=== PATIENT | female | born 1945 | race Hispanic/Latino ===

== ENCOUNTER → 2024-06-15 | Outpatient (CLI) | payer MEDICARE ==
[~2024-06-15] MED LIST: IOHEXOL 350 MG/ML 100ML INFUS..BTL IV ONE
--- NOTE | 2024-06-15 11:47 | HMCIMG ---
CT OF THE CHEST WITH CONTRAST- CT Cardiac Angio co-interpretation This is done as part of the CT cardiac angiogram study. The interpretation of the coronary arteries will be done by textile machinery instructor in a separate report. History: over-read Comparison: none CT Dose Index (CTDI): 77.90 mGy Dose Length Product (DLP): 493.40 total mGy PROTOCOL: Examination is done at 2.5 millimeter volumetric acquisition after contrast administration with Isovue 370, 100 cc IV, without complications. Photography is done at 5 millimeter thick intervals for the thorax. The examination begins above the heart and therefore the lung apices are incompletely included. The rest of the left lung is included but the right lung is only included up to its middle third. The periphery of the right lung is not included in the study. FINDINGS: The visualized part of the airway is preserved. The bony and soft tissue structures of the chest wall are unremarkable. The aorta is unremarkable. No mediastinal lymphadenopathy is seen. The lung windows demonstrate no worrisome pulmonary nodules, masses or infiltrates. There is no evidence of pulmonary embolism in the visualized lung segments. The upper abdominal views are unremarkable. Impression: No significant abnormalities identified.
--- NOTE | 2024-06-24 16:13 | CARDIOLOGY ---
RAD REPORT: CORNARY CT ANGIO RADIOLOGY REPORT: CORONARY CT ANGIOGRAPHY DATE: Jun 24, 2024 QUALITY: Excellent CLINICAL HISTORY AND INDICATION: [chest pain ] TECHNIQUE: After obtaining a preliminary wine bottle inspector image, contrast imaging performed on an [employer]illon [id number] scanner. A dedicated, limited window, coronary imaging protocol was used, with single breath-hold, retrospective ECG gating, and automated arrhythmia rejection. 100 cc of low osmolar contrast agent: Omnipaque 350 was delivered via a 18-gauge IV catheter in the right antecubital fossa, using a power injector and followed by 60 cc of normal saline bolus as a chaser. Collimated images were reformatted at 0.5 mm intervals, and sent to an offline independent workstation for interpretation, using 3D anatomic reconstructions: Curved multiplanar reconstructions, maximum intensity projections, and multiplanar imaging. No metoprolol was administered prior to scanning due to low baseline heart rate. 0.8 mg SL nitroglycerin was given. CORONARY ARTERY DESCRIPTIONS: The coronary arteries arise in normal position. Left main coronary artery: Normal caliber vessel that bifurcates into the LAD and LCx. No stenosis. Left anterior descending coronary artery: Normal caliber vessel and gives rise to diagonal and septal branches. There is calcified plaque in the proximal LAD with 20-30% stenosis. Left circumflex coronary artery: Normal caliber, nondominant and gives rise to a large OM branch. There is calcified plaque in the proximal LCx with 20-30% stenosis. Right coronary artery: Large, dominant vessel giving rise to the PL and PDA branches. No stenosis. CAD-RADs: 2, mild non-obstructive CAD. Thoracic Aorta: Proximal ascending aortic aneurysm of 4.0 cm. Yamilka Thomas MD Cardiovascular Disease [facility] YAMILKA THOMAS MD Jun 24, 2024 16:13
== END | disposition home or self-care (01) ==
LOC: RAH 09:42
PROVIDERS: ATTEND Internal Medicine Cardiovascular Disease
DX: I25.10 Atherosclerotic heart disease of native coronary artery without angina pectoris (principal); R07.89 Other chest pain; R06.00 Dyspnea, unspecified
CPT/HCPCS: 75574; Q9967

== ENCOUNTER 2024-08-10 09:29 | Day surgery (SDC) | payer MEDICARE ==
[2024-08-08 11:35] VITALS: BP 154/71; PULSE 54; RESP 18; TEMP 97.6
[2024-08-08 11:35] LABS: EOSINOPHILS # (AUTO) 0.19 K/uL (0.00-0.70); EOSINOPHILS % (AUTO) 2.5 % (0.0-8.0); HEMATOCRIT 34.8 % (36-48); IMMATURE GRANULOCYTE ABSOLUTE 0.02 K/uL (0-1); LYMPHOCYTES # (AUTO) 1.7 K/uL (1.0-4.8); LYMPHOCYTES % (AUTO) 21.9 % (21.0-51.0); MEAN CORPUSCULAR HEMOGLOBIN 31.3 pg (27.0-33.0); MEAN CORPUSCULAR HGB CONC 33.3 g/dL (32.0-36.0); MEAN CORPUSCULAR VOLUME 93.8 fL (79-99); MONOCYTES # (AUTO) 0.7 K/uL (0.1-1.0); MONOCYTES % (AUTO) 8.9 % (3.0-13.0); NEUTROPHILS % (AUTO) 66.4 % (40.0-77.0); PLATELET COUNT (AUTO) 216 K/uL (130-400); RED BLOOD CELL COUNT(AUTO) 3.71 MIL/uL (4.00-5.50); RED CELL DISTRIBUTION WIDTH 13.1 % (11.0-15.5); WHITE BLOOD COUNT (AUTO) 7.5 K/uL (4.8-10.8)
[2024-08-08 11:45] LABS: CREATININE 0.8 mg/dL (0.5-1.0); POTASSIUM 4.1 mmol/L (3.5-5.1)
[2024-08-08 11:48] LABS: INR 1.02 (0.85-1.15); PROTHROMBIN TIME 10.8 SEC (9.6-11.6)
[2024-08-08 11:49] LABS: PARTIAL THROMBOPLASTIN TIME 29.4 SEC (26.3-35.5)
[2024-08-08 11:59] LABS: B-TYPE NATRIURETIC PEPTIDE 85 pg/mL (0-100)
--- NOTE | 2024-08-08 12:03 | EKG ---
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
[2024-08-08 13:43] LABS: APPEARANCE,URINE CLEAR (CLEAR); BILIRUBIN,URINE NEGATIVE (NEGATIVE); COLOR,URINE COLORLESS (YELLOW); GLUCOSE, URINE (UA) NEGATIVE (NEGATIVE); KETONES,URINE NEGATIVE (NEGATIVE); LEUKOCYTE ESTERASE ,URINE NEGATIVE Leu/uL (NEGATIVE); NITRATE,URINE NEGATIVE (NEGATIVE); OCCULT BLOOD,URINE NEGATIVE (NEGATIVE); PH,URINE 6.5 (5.0-8.0); PROTEIN,URINE NEGATIVE (NEGATIVE); UROBILINOGEN,URINE 0.2 mg/dL (0.2-1.0)
[2024-08-08 13:45] LABS: ADD UA MICROSCOPIC NO
--- NOTE | 2024-08-08 17:41 | HMCIMG ---
CHEST 1VW HISTORY: Preop COMPARISON: None FINDINGS: A frontal projection of the chest was obtained. No acute pulmonary infiltrates is seen. The heart is borderline enlarged. Prominent interstitial markings are seen. Degenerative changes are seen. Aortic calcifications are seen. IMPRESSION: 1. No acute pulmonary infiltrate is seen.
[2024-08-10] VITALS (7 sets, daily range): BP systolic 132–162; BP diastolic 51–81; PULSE 45–60; RESP 12–20; TEMP 97.4–97.9
[~2024-08-10] VITALS: Ht 162.6 cm; Wt 85.1 kg
[~2024-08-10 09:29] MED LIST changes: +AMLO-257 PO; +ASPI-1197 PO; +BACL10TA PO; +BUSP5TAB3 PO; +DICY-20 PO; +DONE10TA43 PO; +IBUP-2070 PO; -IOHEXOL 350 MG/ML 100ML INFUS..BTL IV ONE; +LANS30CA55 PO; +LEVO88CA5 PO; +LOPE2TAB26 PO; +METH1TAB30 PO; +METO-408 PO; +MONT-39 PO; +OLME20TA68 PO; +ROSU10TA72 PO; +TRAM100C2 PO; +TYLENOL ARTHRITIS PO
[2024-08-10] MEDS ORDERED: LIDOCAINE HCL 400MG/20ML VIAL ONE (16:11)
[2024-08-10] MEDS ORDERED: IOHEXOL 350 MG/ML 100ML INFUS..BTL IV ONE (16:11)
[2024-08-10] MEDS ORDERED: SODIUM BICARB 50MEQ 50ML VIAL 50 ML ONE (16:11)
[2024-08-10] MEDS ORDERED: HEParin 10,000 UNIT/10ML (1,000 UNIT/ML) VIAL ONE (16:12)
[2024-08-10] MEDS ORDERED: NITROGLYCERIN 50MG VIAL ONE (16:12)
[2024-08-10] MEDS ORDERED: HEParin-NS 1,000 UNIT/500 ML 1,000 ML IV ONE (16:12)
[2024-08-10] MEDS ORDERED: niCARDIpine 25MG INJ IV ONE (16:35)
[2024-08-10] MEDS ORDERED: FENTanyl CITRate PF 50 MCG/1 ML 2ML VIAL ONE ×2 (16:39→17:21)
[2024-08-10] MEDS ORDERED: MIDAZOLAM HCL 1 MG/ML 2ML VIAL ONE (16:39)
--- NOTE | 2024-08-10 17:51 | PRN ---
Diagnostic Coronary Angiogram From Radial Approach Indication: Anginal symptoms with questionable CT angiogram results Technique: The patient was brought to the casting house laborer in a fasting state and sterile preparation was made in usual fashion. The patient had been explained risks and benefits of the procedure and accepted prior to this procedure. Patient was sedated with 1 mg Versed and 50 mcg fentanyl. Under local anesthesia with 1% lidocaine the right radial artery was entered percutaneously and a 5/6 Samoan Terumo radial sheath was advanced into the vessel. A cocktail of 5000 units aqueous heparin, 200 mcg Cardene and 200 mcg nitroglycerin was administered via radial arterial injection. A 6 Samoan TIGG catheter was advanced to the aortic root over a guidewire and the left coronary was cannulated for selective coronary arteriograms. We could not cannulate the right coronary with a six Samoan TIGG, six Samoan 3.5 right Ritika, six Samoan 4 cm right Ritika, or six Samoan left coronary bypass catheter. Patient was developing spasm in the artery despite multiple administrations of intra arterial nitroglycerin and nicardipine, so we switched to a five Samoan multipurpose catheter with which we successfully cannulated the right coronary and obtain right coronary angiograms. At the conclusion of the procedure arterial hemostasis was obtained by use of a Terumo radial band with excellent hemostasis and no complications.. The patient was transferred from the casting house laborer in stable condition. Results: A. Hemodynamics: Not done, did not cannulate left ventricle B. Ventriculography: Not done, did not cannulate left ventricle C. Coronary arteriography: Right-dominant system, right coronary supplies posterior descending and posterolateral branch. 25% plaque in the vertical portion of the right coronary proximal to the right ventricular marginal and diffuse 20% plaque throughout the acute margin. The vessel is about 3 mm diameter and disease is nonobstructive. Left main is large caliber and free of disease . Left anterior descending supplies a large diagonal and just after this diagonal there is an eccentric 30% mid LAD stenosis which is not obstructive. The left anterior descending is about 3 mm diameter and healthy. Left circumflex supplies a 1st obtuse marginal with segmental proximal 20% plaque and immediately after this obtuse marginal there is a 35-40% stenosis in the common circumflex that compromises flow to the large inferolateral branch of the circumflex. Conclusions: No hemodynamically significant coronary artery disease is demonstrated. MARYAM RODRIGUEZ MD Aug 10, 2024 17:51
[2024-08-10] MEDS: 0.9% NACL 500ML IV.SOLN 500 ML IV SCH (18:00)
--- NOTE | 2024-08-10 19:05 | NUR ---
RE: TR BAND TR BAND TO RIGHT WRIST WITH HAND IMMOBILIZER IN PLACE. S/P LEFT HEART CATH. NO BLEEDING OR HEMATOMA NOTED. 2ML REMOVED FROM TR BAND, PATIENT TOLERATED WELL. NO BLEEDING NOTED.
--- NOTE | 2024-08-10 19:20 | NUR ---
RE: TR BAND TR BAND TO RIGHT WRIST WITH HAND IMMOBILIZER IN PLACE. 2ML REMOVED FROM TR BAND, PATIENT TOLERATED WELL. NO BLEEDING NOTED.
--- NOTE | 2024-08-10 19:35 | NUR ---
RE: TR BAND TR BAND TO RIGHT WRIST WITH HAND IMMOBILIZER IN PLACE. 2ML REMOVED FROM TR BAND, PATIENT TOLERATED WELL. NO BLEEDING NOTED.
--- NOTE | 2024-08-10 19:50 | NUR ---
RE: TR BAND TR BAND TO RIGHT WRIST WITH HAND IMMOBILIZER IN PLACE. 2ML REMOVED FROM TR BAND, PATIENT TOLERATED WELL. NO BLEEDING NOTED.
--- NOTE | 2024-08-10 20:05 | NUR ---
RE: TR BAND TR BAND TO RIGHT WRIST WITH HAND IMMOBILIZER IN PLACE. 2ML REMOVED FROM TR BAND, PATIENT TOLERATED WELL. NO BLEEDING NOTED.
--- NOTE | 2024-08-10 20:20 | NUR ---
RE: TR BAND TR BAND TO RIGHT WRIST WITH HAND IMMOBILIZER IN PLACE. 2ML REMOVED FROM TR BAND, PATIENT TOLERATED WELL. NO BLEEDING NOTED. TR BAND REMOVED AND DRESSING APPLIED (2X2 GAUZE/TEGADERM).
--- NOTE | 2024-08-10 20:34 | NUR ---
PATIENT DISCHARGED FROM FACILITY VIA WHEELCHAIR BY GERMAN BOJORQUEZ AND ASSISTED INTO PRIVATE VEHICLE DRIVEN BY FAMILY.
== END 2024-08-10 20:34 | disposition home or self-care (01) ==
LOC: DAH 09:29
PROVIDERS: ATTEND Internal Medicine Cardiovascular Disease
DX: R07.9 Chest pain, unspecified (principal); I35.1 Nonrheumatic aortic (valve) insufficiency; I25.118 Atherosclerotic heart disease of native coronary artery with other forms of angina pectoris; I25.84 Coronary atherosclerosis due to calcified coronary lesion; R06.09 Other forms of dyspnea; I45.10 Unspecified right bundle-branch block; I10 Essential (primary) hypertension; Z88.0 Allergy status to penicillin; Z88.8 Allergy status to other drugs, medicaments and biological substances; Z85.3 Personal history of malignant neoplasm of breast; Z90.710 Acquired absence of both cervix and uterus; Z79.82 Long term (current) use of aspirin; Z79.899 Other long term (current) drug therapy
CPT/HCPCS: 80048; 83880; 85025; 85610; 85730; 81003; 36415; 71045; 93005; 93454; C1769 ×2; C1894; Q9965 ×2; J3010 ×2; J3490 ×4; J1644 ×2; J2250; Q9967; A4215 ×2; A4222; A4221; A4663; A4216; A4606; A4520; A4223 ×3; 99156; 99157